=== PATIENT | female | born 1945 | race Caucasian/White ===

== ENCOUNTER 2016-05-26 13:57 | Emergency (ER) | payer MEDICARE, OTHER ==
[~2016-05-26 13:57] MED LIST: CELEXA40 MG PO; NORCO1 TA1 PO; PRILOSEC40 MG PO; PRIN20 PO
== END 2016-05-26 14:00 | disposition home or self-care (01) ==
LOC: ER 13:57
DX: M25.562 Pain in left knee (principal); I10 Essential (primary) hypertension; Z96.651 Presence of right artificial knee joint; Z79.899 Other long term (current) drug therapy
CPT/HCPCS: 73560-LT; 99283